=== PATIENT | male | born 1995 ===

== ENCOUNTER 2016-05-17 13:25 | Emergency (ER) | payer OTHER ==
--- NOTE | 2016-05-22 23:07 | ER ---
ADMIT: 05/17/2016 RM/LOC: ER [facility] MR#: [id number] [id number] BELLE LIZAMA [address] [place] [id number] Emergency Room Report SEX: M AGE: 20 : 1995 DATE: 05/17/2016 ADDENDUM: CHIEF COMPLAINT: Laceration. HISTORY OF PRESENT ILLNESS: This is a 20-year-old who works for [employer]. He was sharpening the knives, the knife slipped and hit his left 4th digit. Suture repair was done. Please see T-sheet for the full procedure note. CLINICAL IMPRESSION: Laceration to the 4th finger at the middle phalanx. There was no tendon injury. Having him use Motrin, Tylenol, or ice for pain. Have the stitches removed in 7 to 10 days. Keep clean and dry, and follow up with his primary care physician if any signs of infection. ZEHRA Rodriguez / Waldemar Randolph MD / modl JOB #: [id number] CC: Waldemar Randolph MD, Attending Physician Bay Tipton MD, Family Physician
== END 2016-05-17 14:56 | disposition home or self-care (01) ==
LOC: ER 13:25
PROC: 0HQGXZZ Repair Left Hand Skin, External Approach (ICD-10-PCS; principal; 2016-05-17)
DX: S61.215A Laceration without foreign body of left ring finger without damage to nail, initial encounter (principal); F17.210 Nicotine dependence, cigarettes, uncomplicated; W26.0XXA Contact with knife, initial encounter; Y99.0 Civilian activity done for income or pay